=== PATIENT | male | born 1950 | race Caucasian/White ===

== ENCOUNTER 2019-09-25 04:11 | Emergency (ER) | payer MEDICARE, OTHER ==
[2019-09-25 04:25] VITALS: BP 150/90
--- NOTE | 2019-09-25 04:44 | ED Physician Documentation ---
History of Present Illness - Stated complaint Stated Complaint: COUGH/N/V/CANT SLEEP - Chief complaint Chief Complaint: Heent - Additonal information Additional information: This is a 69-year-old male with a history of hypertension,Hyperlipidemia, diabetes, who presents with a productive cough for 1 week as well as itchy ears. Patient began having the cough around a week ago, it is productive of white sputum. He has been coughing so much that his abdomen feels sore. He denies hemoptysis, denies shortness of breath, no chest pain. He has had one episode of vomiting today. He has had sore throat as well. States that his bilateral ears feel little itchy/irritated, but he denies pain in his ears. He has been trying Sudafed, and ibuprofen, with mild relief. No current fever. Review of Systems Nose: reports: Rhinorrhea / runny nose Cardiac: denies: Chest pain / pressure Respiratory: reports: Cough GI: reports: Vomiting Skin: denies: Rash PD PAST MEDICAL HISTORY - Past Medical History Past Medical History: Yes Cardiovascular: Hypertension, High cholesterol Respiratory: None Neuro: None Endocrine/Autoimmune: Type 2 diabetes GI: None : None HEENT: None Psych: None Musculoskeletal: None Derm: None - Past Surgical History Past Surgical History: Yes General: Colonoscopy HEENT: Tonsil/Adenoidectomy Derm: Skin grafts - Present Medications Home Medications: Ambulatory Orders Medication Instructions Recorded Confirmed Aspirin [Aspir-Low] 81 mg PO DAILY 04/25/16 04/25/16 Atorvastatin Calcium 10 mg PO DAILY 04/25/16 04/25/16 Lisinopril 10 mg PO DAILY 04/25/16 04/25/16 metFORMIN [Glucophage] 500 mg PO ONCE 04/25/16 04/25/16 Benzonatate [Tessalon Perle] 100 - 200 mg PO TID PRN #30 capsule 09/25/19 Doxycycline Hyclate 100 mg PO BID #14 capsule 09/25/19 - Allergies Allergies/Adverse Reactions: Allergies Allergy/AdvReac Type Severity Reaction Status Date / Time No Known Drug Allergies Allergy Verified 04/25/16 12:39 - Social History Does the pt smoke?: No Smoking Status: Never smoker Does the pt drink ETOH?: No Does the pt have substance abuse?: No - Immunizations Immunizations are current?: Yes - POLST Patient has POLST: No PD ED PE NORMAL - Vitals Vital signs reviewed: Yes - General General: Alert and oriented X 3, No acute distress - HEENT HEENT: Atraumatic, PERRL, Other (Posterior pharynx is erythematous, no exudate. Tonsils are surgically absent) - Neck Neck: Supple, no meningeal sign - Cardiac Cardiac: No murmur, Other (Regular rate and rhythm on my examination) - Respiratory Respiratory: No respiratory distress, Clear bilaterally, Other (Intermittent cough) - Abdomen Abdomen: Soft, Non tender, Non distended - Derm Derm: Warm and dry - Extremities Extremities: No deformity - Neuro Neuro: Alert and oriented X 3 - Psych Psych: Normal mood, Normal affect Results - Vitals Vitals: Vital Signs - 24 hr 09/25/19 04:23 Temperature 37.0 C Heart Rate 112 H Blood Pressure 150/90 H O2 Saturation 95 Oxygen O2 Source Room air - Labs Labs: Laboratory Tests 09/25/19 04:20 Group A Strep Rapid Negative - Rads (name of study) XR Radiology: Other (Patchy right basilar infiltrate) PD MEDICAL DECISION MAKING - ED course Complexity details: considered differential (URI, pneumonia, sinusitis,Asthma, COPD, heart failure) ED course: Patient is nontoxic-appearing on exam, oxygen saturation is normal, lungs are clear on my examination. Given the duration of his cough, x-ray is obtained, it shows a patchy right basilar infiltrate. Compared to a past x-ray I do not see an obvious change. He does not have any signs of heart failure on exam and his symptoms are much more consistent with infection. he has not had a fever or facial pain to suggest sinusitis, there is no otitis media on examination. I discussed with him that I think this is most likely a viral illness given the combination of his symptoms, and I recommended supportive care with Tylenol and ibuprofen as well as Tessalon Perles which were prescribed. Rapid strep negative. On my repeat examination his heart rate is within normal limits and he continues to be well-appearing. Given the patchy questionable basilar infiltr ate, I did prescribe him a course of doxycycline with instructions to start this if he is not having improvement over the next 1 to 2 days or if he is having worsening symptoms such as fever. Patient agrees with this plan and was discharged home in the care of his Departure - Departure Disposition: Home, Self Care Clinical Impression: Cough Condition: Good Follow-Up: Jonathan Sanchez DO [Primary Care Provider] - Within 1 week (With any new or wor sening symptoms) Prescriptions: Benzonatate [Tessalon Perle] 100 - 200 mg PO TID PRN #30 capsule PRN Reason: Cough Doxycycline Hyclate 100 mg PO BID #14 capsule Comments: I think you most likely have a viral infection which is the cause of your cough. Your chest x-ray did show a patchy area which may represent an early pneumonia, if you are having fever, or if your symptoms are not improving over the next 1 to 2 days, you may start the antibiotic. If you develop difficulty breathing, coughing up blood, or other concerning symptoms please return to the emergency department
--- NOTE | 2019-09-25 05:11 | XRAY Report ---
Reason: Productive cough x 1 week Procedure Date: 09/25/2019 Accession Number: [id number] / [id number] Procedure: XR - Chest 2 View X-Ray CPT Code: 19891 Final Report FULL RESULT: EXAM: CHEST RADIOGRAPHY EXAM DATE: 09/25/2019 04:51 AM. CLINICAL HISTORY: Productive cough x 1 week. COMPARISON: None. TECHNIQUE: 2 views. FINDINGS: Lungs/Pleura: Patchy right basilar infiltrate. No effusion or pneumothorax. Mediastinum: Heart and mediastinal contours are unremarkable. Other: None. IMPRESSION: Patchy right basilar infiltrate. RADIA
== END 2019-09-25 05:52 | disposition home or self-care (01) ==
LOC: ED 04:11
DX: R05 Cough (principal); I10 Essential (primary) hypertension; E11.9 Type 2 diabetes mellitus without complications; Z79.84 Long term (current) use of oral hypoglycemic drugs
CPT/HCPCS: 71046; 87070; 87430; 99283; 99284

== ENCOUNTER 2020-05-06 09:21 | Outpatient (CLI) | payer MEDICARE, OTHER ==
--- NOTE | 2020-05-06 11:19 | CARDIAC PROCEDURE NOTE ---
DATE OF SERVICE: 05/06/2020 Physician: Liss Garay MD, [facility] INDICATION: Chest pain with exertion. CARDIAC RISK FACTORS: Male gender, obesity, hypertension, hyperlipidemia, family history of heart disease, and diabetes (on no diabetic medications). This patient also forgot to take all of his medicines for the past 2-3 days and thus has had no lisinopril, atorvastatin, or aspirin. DESCRIPTION OF PROCEDURE: After signing informed consent, the patient underwent a Toribio-protocol treadmill stress test. There was no imaging ordered with this test. RESTING HEART RATE: 67. PEAK HEART RATE: 125 (82% predicted maximum heart rate for age). RESTING BLOOD PRESSURE: 185/95. PEAK BLOOD PRESSURE: 163/90. The patient exercised for 3 minutes and 56 seconds on a Toribio-protocol treadmill. Exercise was stopped before reaching target heart rate due to the development of chest pain with significant ST segment changes and blood pressure drop. The patient developed chest pain at the beginning of stage II, which he rated 4-5/10. There was no shortness of breath. The chest pain resolved after 4 minutes of recovery. Abnormal blood pressure response to exercise. The patient forgot to take his blood pressure medicines for the last 2-3 days and presented with a blood pressure of 185/95. With exercise, the blood pressure dropped to 163/90, then was still low at 1 minute of recovery at 164/77. By 3 minutes of recovery it increased to 209/89. RESTING EKG: Normal sinus rhythm, vertical axis, inverted T-wave in lead III, flat T-wave in aVF and V4 and V5. EKG at 1 minute of exercise showed pseudonormalization of the T-wave abnormalities in leads III, aVF, V4, and V5. EKG at peak showed 1.[address] depressions in leads II, III, aVF, and V3 through V6. Because of these changes the exercise was stopped. EKG at 3 minutes of recovery showed new T-wave inversions in leads I and aVL, biphasic T waves in leads III, aVF, V3 through V6. EKG AT 7 minutes post-exercise had returned to baseline. IMPRESSION: 1. Abnormal resting electrocardiogram. 2. Very abnormal stress test by virtue of ischemic EKG changes, development of typical chest pain and drop in blood pressure with exercise, the latter suggests 3-vessel disease or left main disease. 3. This patient's cardiac risk based on all the above: High. 4. Dr. Sacnhez was called with this test result. 5. The patient was advised light activity and to resume his medicines that he has forgotten to take and to begin the new beta montez and sublingual nitro p.r.n. that will be ordered for him by Dr Sanchez. 6. Urgent coronary angiogram is advised. cc: Jonathan Sanchez DO TD: 05/06/2020 10:47 MTDD
== END 2020-05-06 09:22 | disposition home or self-care (01) ==
LOC: DI 09:21
PROVIDERS: ATTEND Family Medicine
DX: R07.9 Chest pain, unspecified (principal); R94.31 Abnormal electrocardiogram [ECG] [EKG]; E66.9 Obesity, unspecified; I10 Essential (primary) hypertension; E78.5 Hyperlipidemia, unspecified; E11.9 Type 2 diabetes mellitus without complications; Z82.49 Family history of ischemic heart disease and other diseases of the circulatory system; Z91.14 Patient's other noncompliance with medication regimen
CPT/HCPCS: 93017

== ENCOUNTER 2020-07-03 14:18 | Outpatient (CLI) | payer MEDICARE, OTHER ==
[2020-07-03 14:48] LABS: CALCIUM 9.2 mg/dL (8.5-10.3); CREATININE 0.9 mg/dL (0.6-1.2)
== END 2020-07-03 14:19 | disposition home or self-care (01) ==
LOC: LAB 14:18
PROVIDERS: ATTEND Internal Medicine Cardiovascular Disease
DX: R94.31 Abnormal electrocardiogram [ECG] [EKG] (principal); I10 Essential (primary) hypertension; E11.9 Type 2 diabetes mellitus without complications
CPT/HCPCS: 36415; 80048

== ENCOUNTER 2021-05-14 09:21 | Outpatient (CLI) | payer MEDICARE, OTHER ==
[2021-05-14 10:03] LABS: ALBUMIN/GLOBULIN RATIO 1.3 (1.0-2.2); ALKALINE PHOSPHATASE 66 IU/L (42-121); ALT ALANINE AMINOTRANSFERASE 16 IU/L (10-60); AST ASPARTATE AMINOTRANSFERASE 18 IU/L (10-42); BILIRUBIN,TOTAL 0.7 mg/dL (0.2-1.0); BUN - BLOOD UREA NITROGEN 15 mg/dL (6-20); CALCIUM 9.3 mg/dL (8.5-10.3); CARBON DIOXIDE - CO2 27 mmol/L (21-32); CHLORIDE 105 mmol/L (101-111); CHOL/HDL RATIO 2.5 (<5.0); CHOLESTEROL 133 mg/dL; CREATININE 0.8 mg/dL (0.6-1.2); GFR - MDRD 96 (>89); GLUCOSE 110 mg/dL (70-100); HDL CHOLESTEROL 54 mg/dL; LDL CHOLESTEROL,CALCULATED 69 mg/dL; LDL/HDL RATIO 1.3 (<3.6); POTASSIUM 4.3 mmol/L (3.5-5.0); SODIUM 140 mmol/L (135-145); TRIGLYCERIDES 49 mg/dL; VLDL CHOLESTEROL 10 mg/dL
== END 2021-05-14 09:22 | disposition home or self-care (01) ==
LOC: LAB 09:21
PROVIDERS: ATTEND Internal Medicine Cardiovascular Disease
DX: E78.5 Hyperlipidemia, unspecified (principal)
CPT/HCPCS: 36415; 80053; 80061; 83721